=== PATIENT | male | born 1990 | race African-American/Black ===

== ENCOUNTER 2021-04-24 05:39 | Emergency (ER) | payer OTHER ==
[2021-04-24 07:20] LABS: BASOPHIL 0.5 % (0-2); EOSINOPHIL 1.2 % (0-5); HCT 51.2 % (42.0-52.0); LYMPHOCYTE 2.2 % (15-48); MCH 28.8 pg (25.0-31.0); MCHC 33.2 g/dL (32.0-36.0); MCV 86.8 fL (78.0-100.0); MONOCYTE 10.3 % (0-12); MPV 9.8 fL (6.0-9.5); NEUTROPHIL 83.3 % (41-80); NRBC 0; PLT 176 K/uL (150-400); RDW 13.2 % (11.5-14.0); WBC 10.2 K/uL (4.0-10.5)
[2021-04-24 07:41] LABS: ALBUMIN 2.9 g/dL (3.4-5.0); BILIRUBIN - TOTAL 0.6 mg/dL (0.2-1.0); BUN/CREAT RATIO (CALC) 12.7 RATIO; CREATININE 5.04 mg/dL (0.67-1.17); GLOBULIN (CALCULATION) 4.6 g/dL; POTASSIUM 3.5 mmol/L (3.5-5.1); TOTAL PROTEIN 7.5 g/dL (6.4-8.2)
[2021-04-24 08:05] LABS: INFLUENZA A NAA NEGATIVE (NEGATIVE)
[2021-04-24 08:11] LABS: CORONAVIRUS 2019 SARS-COV-2 POSITIVE (NEGATIVE)
[2021-04-24 12:40] LABS: INR 1.72 (0.9-1.2); PROTHROMBIN TIME 19.4 SECONDS (11.8-13.4)
[2021-04-24 12:41] LABS: PTT 53.6 SECONDS (24.4-34.7)
[2021-04-24 12:47] LABS: BUN/CREAT RATIO (CALC) 14.5 RATIO; CREATININE 4.13 mg/dL (0.67-1.17); POTASSIUM 3.5 mmol/L (3.5-5.1)
== END 2021-04-24 18:50 | disposition other institution (70) ==
LOC: FER 05:39
PROVIDERS: Internal Medicine
DX: U07.1 COVID-19 (principal); J12.82 Pneumonia due to coronavirus disease 2019; N17.9 Acute kidney failure, unspecified; E86.1 Hypovolemia; E87.1 Hypo-osmolality and hyponatremia; R91.8 Other nonspecific abnormal finding of lung field; I82.611 Acute embolism and thrombosis of superficial veins of right upper extremity; Z79.899 Other long term (current) drug therapy
CPT/HCPCS: 36415; 71045; 80048; 80053; 85025; 85610; 85730; 93971; J1170; J1200; J1644; J7030; U0002